=== PATIENT | male | born 1965 | race Caucasian/White ===

== ENCOUNTER 2016-12-30 20:01 | Emergency (ER) | payer MEDICAID ==
[2016-12-30] MEDS ORDERED: MORPHINE 4 MG/ML SYR ONE (20:06)
[2016-12-30] MEDS ORDERED: NALOXONE 2 MG/2 ML SYRINGE ONE (21:44)
[2016-12-30] MEDS ORDERED: SODIUM CHLORIDE 0.9% 1,000 ML ONE (21:44)
== END 2016-12-30 21:58 | disposition home or self-care (01) ==
LOC: ER 20:01
DX: T40.2X1A Poisoning by other opioids, accidental (unintentional), initial encounter (principal); J44.1 Chronic obstructive pulmonary disease with (acute) exacerbation; Z87.891 Personal history of nicotine dependence
CPT/HCPCS: 36415; 36600; 71010; 80051; 80053; 80307; 82330; 82553; 82803; 82947; 83880; 84484; 85025; 93005; 96361; 96374; 96375